=== PATIENT | female | born 1980 | race African-American/Black ===

== ENCOUNTER 2022-02-10 08:14 | Emergency (ER) | payer BC ==
[~2022-02-10] VITALS: Ht 170.2 cm; Wt 49.4 kg
[2022-02-10 08:25] VITALS: BP 130/73
--- NOTE | 2022-02-10 08:31 | NUR ---
PT WC ASSISTED TO BED 11
--- NOTE | 2022-02-10 08:38 | NUR ---
PT WC ASSISTED TO BATHROOM
[2022-02-10] MEDS ORDERED: NACL 0.9% 1,000 ML IV ONE (09:00)
[2022-02-10] MEDS ORDERED: ONDANSETRON 4 MG/2 ML VIAL IVP ONE (09:00)
[2022-02-10] MEDS ORDERED: MORPHINE SULFATE 4 MG/ML SYR IVP ONE (09:00)
--- NOTE | 2022-02-10 09:02 | NUR ---
lab at bedside
[2022-02-10] MEDS ORDERED: cefTRIAXone 1,000 MG VIAL ONE ×2 (09:08→10:06)
--- NOTE | 2022-02-10 09:30 | NUR ---
41 y/o female c/o of pelvic pain x 1 week. Pt reports she started bleeding heavily 2 weeks ago, and inserted make up sponge into vagina on friday that got stuck, she went to [facility] on friday for removal. Since has had nv and constant cramping pain reported at 9/10 + 6 episodes of vomiting today. Denies fever, chills, sob, cp, dysuria, drug or etoh use. Denies taking medication for pain. Reports bleeding stopped 4 days ago. ALL: tramadol, reglan PMH: fibromyalgia, endometriosis
[2022-02-10 09:58] LABS: BASOPHILS # (AUTO) 0.1 K/uL (0.00-0.22); BASOPHILS % (AUTO) 0.6 % (0.0-2.0); HEMATOCRIT 38.7 % (36-48); HEMOGLOBIN 12.8 g/dL (12.0-16.0); LYMPHOCYTES % (AUTO) 14.5 % (20.5-51.1); MEAN CORPUSCULAR HEMOGLOBIN 28 pg (27-31); MEAN CORPUSCULAR HGB CONC 33 g/dL (33-37); MEAN CORPUSCULAR VOLUME 85.8 fL (80-94); MONOCYTES % (AUTO) 7.7 % (1.7-9.3); NEUTROPHILS # (AUTO) 10.5 K/uL (1.8-7.7); NEUTROPHILS % (AUTO) 77.2 % (42.2-75.2); PLATELET COUNT (AUTO) 280 K/uL (140-450); RED BLOOD CELL COUNT(AUTO) 4.51 MIL/uL (4.20-5.40); RED CELL DISTRIBUTION WIDTH 13.2 % (11.6-13.7); WHITE BLOOD COUNT (AUTO) 13.6 K/uL (4.8-10.8)
[2022-02-10] MEDS ORDERED: ONDANSETRON 4 MG ODT PO ONE (10:05)
[2022-02-10] MEDS ORDERED: HYDROcodone/APAP 5/325 MG 1 TAB TAB PO ONE (10:05)
[2022-02-10] MEDS ORDERED: cefTRIAXone 1,000 MG in LIDOCAINE MPF 1% 2.1 ML IM ONE (10:05)
[2022-02-10] MEDS ORDERED: LIDOCAINE MPF 1% 5 ML ONE (10:07)
[2022-02-10 10:14] LABS: ALBUMIN 4.2 g/dL (3.4-5.0); ANION GAP 14.8 (8-16); CARBON DIOXIDE 26.2 mmol/L (21-32); CREATININE 0.9 mg/dL (0.6-1.3); TOTAL BILIRUBIN 0.5 mg/dL (0.0-1.0)
[2022-02-10] MEDS ORDERED: KETOROLAC 60 MG/2 ML VIAL IM ONE (10:50)
--- NOTE | 2022-02-10 11:09 | NUR ---
PT TAKEN TO CT VIA W/C
[2022-02-10] MEDS ORDERED: MORPHINE SULFATE 4 MG/ML SYR IM ONE (11:30)
[2022-02-10] MEDS ORDERED: DOXY-690 PO (12:23)
[2022-02-10] MEDS ORDERED: ACET-10509 PO (12:24)
[2022-02-10] MEDS ORDERED: ACET-8386 PO (12:24)
[2022-02-10 13:00] VITALS: BP 132/74
--- NOTE | 2022-02-10 13:00 | NUR ---
Patient discharged with v/s stable. Written and verbal after care instructions given and explained. Patient alert, oriented and verbalized understanding of instructions. Ambulatory with steady gait. All questions addressed prior to discharge. ID band removed. Patient advised to follow up with PMD. Rx of Tylenol, Doxycycline, Henriette given. Patient educated on indication of medication including possible reaction and side effects. Opportunity to ask questions provided and answered.
== END 2022-02-10 13:00 | disposition home or self-care (01) ==
LOC: MED 08:14
DX: N73.9 Female pelvic inflammatory disease, unspecified (principal); E87.6 Hypokalemia; Z79.1 Long term (current) use of non-steroidal anti-inflammatories (NSAID); Z79.84 Long term (current) use of oral hypoglycemic drugs; Z88.5 Allergy status to narcotic agent
CPT/HCPCS: 36415; 74176; 76801; 80053; 81002; 81025; 84702; 85025; 86702; 86703; 86886; 86900; 86901; 96372; 99284; J0696; J2001; J2270; Q0092; Q0162; J1885; J2405

== ENCOUNTER 2024-02-08 13:21 | Emergency (ER) | payer BC ==
[~2024-02-08] VITALS: Ht 170.2 cm; Wt 49.9 kg
[~2024-02-08 13:21] MED LIST: ACET-10509 PO; ACET-8905 PO; DOXY-690 PO
[2024-02-08 13:53] VITALS: BP 119/79; PULSE 110; RESP 29; TEMP 100.3; O2SAT 96
[2024-02-08] MEDS: ONDANSETRON 4 MG/2 ML VIAL IVP ONE ×2 (14:25→15:11)
[2024-02-08] MEDS: NACL 0.9% 2,000 ML IV ONE (14:28)
[2024-02-08] MEDS: ACETAMINOPHEN 325 MG TAB PO ONE (14:28)
[2024-02-08 14:32] LABS: BASOPHILS % (AUTO) 0.4 % (0.0-2.0); EOSINOPHILS # (AUTO) 0.1 K/uL (0-0.4); EOSINOPHILS % (AUTO) 0.7 % (0.0-4.0); HEMATOCRIT 33.8 % (36-48); HEMOGLOBIN 11.2 g/dL (12.0-16.0); LYMPHOCYTES # (AUTO) 0.3 K/uL (2.5-16.5); LYMPHOCYTES % (AUTO) 2.9 % (20.5-51.1); MEAN CORPUSCULAR HEMOGLOBIN 29 pg (27-31); MEAN CORPUSCULAR HGB CONC 33 g/dL (33-37); MEAN CORPUSCULAR VOLUME 86.5 fL (80-94); MONOCYTES # (AUTO) 0.6 K/uL (0.8-1.0); MONOCYTES % (AUTO) 5.8 % (1.7-9.3); NEUTROPHILS # (AUTO) 8.9 K/uL (1.8-7.7); NEUTROPHILS % (AUTO) 90.2 % (42.2-75.2); PLATELET COUNT (AUTO) 220 K/uL (140-450); RED CELL DISTRIBUTION WIDTH 13.7 % (11.6-13.7); WHITE BLOOD COUNT (AUTO) 9.9 K/uL (4.8-10.8)
[2024-02-08 14:43] LABS: ANION GAP 11.8 (8-16); CARBON DIOXIDE 26.4 mmol/L (21-32); CREATININE 0.9 mg/dL (0.6-1.3); POTASSIUM 4.2 mmol/L (3.5-5.1)
[2024-02-08 14:48] LABS: TOTAL BILIRUBIN 0.3 mg/dL (0.0-1.0); TOTAL PROTEIN, SERUM 7.5 g/dL (6.4-8.2)
[2024-02-08 14:53] LABS: LACTIC ACID 1.5 mmol/L (0.4-2.0)
[2024-02-08 14:53] LABS: FLU A ANTIGEN negative (NEGATIVE); FLU B ANTIGEN NEGATIVE (NEGATIVE)
[2024-02-08] MEDS ORDERED: cefTRIAXone 1,000 MG VIAL ONE (15:03)
[2024-02-08] MEDS: LORazepam 2 MG/ML VIAL IVP ONE (15:53)
[2024-02-08 15:55] LABS: APPEARANCE,URINE CLEAR (CLEAR); BILIRUBIN,URINE NEGATIVE (NEGATIVE); BLOOD, URINE NEGATIVE (NEGATIVE); COLOR,URINE YELLOW (YELLOW); LEUKOCYTE ESTERASE ,URINE NEGATIVE (NEGATIVE); NITRITE, URINE NEGATIVE (NEGATIVE); PH,URINE 6.5 (5.0-9.0); PROTEIN,URINE NEGATIVE (NEGATIVE); UGLUCOSE NEGATIVE (NEGATIVE); UROBILINOGEN,URINE 0.2 EU/dL (0.2 - 1)
[2024-02-08 16:10] LABS: CANNABINOID, URINE POSITIVE ng/mL (NEG <=50)
[2024-02-08 16:11] LABS: AMPHETAMINE, URINE POSITIVE ng/ml (NEG <=1000); BARBITURATE, URINE NEGATIVE ng/ml (NEG <=200); BENZODIAZEPINE, URINE NEGATIVE ng/mL (NEG <=200); COCAINE, URINE NEGATIVE ng/mL (NEG <=300); OPIATE, URINE NEGATIVE ng/mL (NEG <=2000); PHENCYCLIDINE SCREEN,URINE NEGATIVE ng/mL (NEG <=25)
[2024-02-08] MEDS: KETOROLAC 30 MG/ML VIAL IVP ONE (16:12)
[2024-02-08 16:28] VITALS: BP 125/72; PULSE 119; RESP 16; TEMP 101; O2SAT 100
[2024-02-08] MEDS: NACL 0.9% 1,000 ML IV ONE (16:34)
[2024-02-08] MEDS ORDERED: MIDAZOLAM 5 MG/5 ML VIAL IV ONE (16:35)
== END 2024-02-08 17:25 | disposition left against medical advice (07) ==
LOC: MED 13:21
DX: A41.9 Sepsis, unspecified organism (principal); R00.0 Tachycardia, unspecified; R06.82 Tachypnea, not elsewhere classified; R20.0 Anesthesia of skin; Z20.822 Contact with and (suspected) exposure to COVID-19; Z79.899 Other long term (current) drug therapy; Z88.8 Allergy status to other drugs, medicaments and biological substances; Z88.6 Allergy status to analgesic agent; Z88.5 Allergy status to narcotic agent
CPT/HCPCS: 36415; 71045; 71275; 74174; 80048; 80076; 80305; 81003; 81025; 83605; 84443; 84484; 85025; 87040; 87086; 87426; 87804; 96361; 96365; 96375; 96376; 99291; 99292; J0696; J1885; J2060; J2405; J7030; Q9967; J2250